=== PATIENT | female | born 1985 | race Caucasian/White ===

== ENCOUNTER 2018-07-31 08:16 | Emergency (ER) | END 2018-07-31 08:56 | disposition home or self-care (01) ==

== ENCOUNTER 2019-02-15 22:10 | Observation (INO) | payer OTHER ==
[~2019-02-15] VITALS: Ht 156.2 cm; Wt 73.9 kg
[~2019-02-15 22:10] MED LIST: AMOX1TAB10 PO
[2019-02-15 22:18] VITALS: BP 114/67; PULSE 82; RESP 20; Ht 156.2 cm; Wt 73.9 kg
[2019-02-15] MEDS ORDERED: PREN-93 PO (22:19)
[2019-02-16] MEDS ORDERED: TERBUTALINE 1 MG/ML INJ SC ONE (01:00)
[2019-02-16] MEDS ORDERED: LACTATED RINGER'S 1,000 ML IV ONE (01:00)
[2019-02-16] MEDS: LACTATED RINGER'S 1,000 ML IV SCH ×2 (02:50→05:48)
[2019-02-16] MEDS ORDERED: ACETAMINOPHEN 325 MG TAB PO PRN (04:00)
[2019-02-16] MEDS ORDERED: ACCU-CHEK XX SCH (06:00)
[2019-02-16] MEDS ORDERED: PRENATAL VITAMIN PO SCH (09:00)
--- NOTE | 2019-02-16 10:28 | PD.PPDC ---
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
--- NOTE | 2019-02-16 10:36 | DS ---
Date/Time of Note Date/Time of Note DATE: 02/16/19 TIME: 10:28 Obstetrical Discharge Record Final Diagnosis Final Diagnosis: not delivered Other Final Diagnosis IUP 36w2d GDM Complications Labor Augmentation: No Induction: No Rupture of Membranes: No Condition on Discharge Physical Assessment Last Vitals: vss afebrile EFM uc 8min mild feels far better VE 1-2 cm / long /-3 no change from last night 2200 Voiding: Yes Breast: Soft, non-tender Fundus: Other ( non tender) Calf Tenderness: No Patient Condition: Stable DANIELLE KAUFFMAN MD February 16, 2019 10:36
--- NOTE | 2019-02-16 11:47 | HP ---
Date/Time of Note Date/Time of Note DATE: 02/16/19 TIME: 11:43 OB - History Hx of Present Free Text/Dictation Late entry note 33-year-old 3 para 2 at 36 weeks and 2 days of gestation with estimated date of delivery March 14, 2019 Patient presents with chief complaint of uterine contractions She reports positive movement, denies vaginal bleeding or leaking fluid Patient's gestational diabetic diet controlled Estimated Due Date: Mar 14, 2019 : 3 Para: 2 Care: Good Care Obstetrical Complications: Gestational Diabetes (GDM A1) Past Family/Social History * Past Medical, Surgical, Family and Obstetric Histories reviewed from chart. OB Admission Exam Vital Signs Vital Signs Vital Signs Date Temp Pulse Resp B/P (MAP) Pulse Ox O2 O2 Flow FiO2 Time Delivery Rate 02/15/19 98.7 82 20 114/67 Room Air 22:18 (83) Physical Exam HEENT: WNL Heart: Rhythm Normal Lungs: Clear, Equal Abdomen: WNL Extremities: Normal Reflexes: Normal Cervical Dilatation: 2cm Effacement: 50% Station: -2 Membranes: Intact Heart Rate: 140's Accelerations: Accelerations Present Decelerations: No Decelerations Varibility: Moderate Contractions on Admission: < 5 Minutes Apart Intensity: Moderate Last 72 hourBlood Glucose Bedside Glucose - 72 Hours Test 02/15/19 22:45 02/16/19 08:09 Bedside Glucose 91 mg/dL (70-220) 75 mg/dL (70-220) Last 72 hours Lab Results CBC & BMP 02/16/19 04:49 PROCEDURE: US OB biophysical profile. CLINICAL INDICATION: labor TECHNIQUE: Multiple sonographic images of the pelvis were obtained. The images were reviewed on a PACS workstation. COMPARISON: None FINDINGS: There is a live intrauterine gestation. There is a normal amount of amniotic fluid with an GERMAIN = 12.3 cm. Cardiac activity is present with 158 beats per minute. There is a vertex presentation. The placenta is posterior. Biophysical profile: movement 2/2 tone 2/2. breathing 2/2 GERMAIN 2/2 Total 05/15 IMPRESSION: Normal biophysical profile. RPTAT:HCLE crystal Kole, Physician Date Time Electronically viewed and signed by Physician Bob on 02/16/2019 01:14 cE/ CC: DOREEN CANDELARIA MD [phone] PROCEDURE: US OB. CLINICAL INDICATION: labor TECHNIQUE: Multiple sonographic images of the pelvis were obtained. The images were reviewed on a PACS workstation. COMPARISON: No prior studies are available for comparison. FINDINGS: There is a single live intrauterine gestation. Cardiac activity is present with 159 beats per minute. There is a vertex presentation. Measurements were made in order to determine age. The results are as follows: BPD = 9.1 cm HC = 31.3 cm AC = 32.2 cm FL = 7.0 cm Estimated gestational age of approximately 36 weeks 1 day. The estimated date of delivery is 03/14/2019. The EFW = 2844 g, which is at the 50th percentile. The placenta is posterior. There is no evidence for an abruption or placenta previa. There is a normal amount of amniotic fluid with an GERMAIN = 12.3 cm. IMPRESSION: Single live intrauterine gestation of approximately 36 weeks 1 day. The estimated date of delivery is 03/14/2019. Estimated weight is at the 50th percentile. . No evidence of placental abruption or previa. RPTAT:HCLE crystal Sharif Physician Date Time Electronically viewed and signed by Physician Bob on 02/16/2019 01:14 cE/ CC: DOREEN CANDELARIA MD [phone] OB Assessment/Plan Reason for admission: labor Plan: Expectant Management Other plan: Patient received IV fluids and terbutaline and still slick Admit to labor and delivery for continuous observation Copies To: CC: HALEIGH GAMEZ MD ; DOREEN CANDELARIA MD February 16, 2019 11:47
== END 2019-02-16 10:31 | disposition home or self-care (01) ==
LOC: OBT 22:10 → L-D 22:10 → OBT 02-16 03:27 → INTOOBSV 02-16 03:27 → L-D 02-16 03:27
PROVIDERS: ADMIT Obstetrics & Gynecology; ATTEND Obstetrics & Gynecology
DX: O47.03 False labor before 37 completed weeks of gestation, third trimester (principal); O24.419 Gestational diabetes mellitus in pregnancy, unspecified control; Z3A.36 36 weeks gestation of pregnancy
CPT/HCPCS: 36415; 76815; 76818; 81001; 82962; 85025; 85610; 85730; 86592; 86762; 86850; 86900; 86901; 87340; 96360; 96361; 96372; J3105; J7120; Z7500; 81003; 99217; G0378; G0463

== ENCOUNTER 2019-02-26 04:22 | Inpatient (IN) | payer OTHER ==
[~2019-02-26] VITALS: Ht 154.9 cm; Wt 73.9 kg
[~2019-02-26 04:22] MED LIST changes: -AMOX1TAB10 PO; +PREN-93 PO
[2019-02-26 04:36] VITALS: BP 108/61; PULSE 77; RESP 18
[2019-02-26] MEDS ORDERED: LACTATED RINGER'S 1,000 ML IV PRN (04:40)
[2019-02-26] MEDS ORDERED: METHYLERGONOVINE 0.2 MG INJ IM PRN ×2 (05:00→13:00)
[2019-02-26] MEDS ORDERED: OXYTOCIN 30 UNITS/LR 500 ML IV PRN ×2 (05:00→13:00)
[2019-02-26] MEDS ORDERED: IBUPROFEN 600 MG TAB PO PRN (05:00)
[2019-02-26] MEDS ORDERED: OXYTOCIN 30 UNITS/LR 500 ML IV SCH ×3 (05:00→12:47)
[2019-02-26] MEDS ORDERED: CARBOPROST 250 MCG INJ IM PRN ×2 (05:00→13:00)
[2019-02-26] MEDS ORDERED: MISOPROSTOL 200 MCG TAB PR PRN ×2 (05:00→13:00)
[2019-02-26] MEDS ORDERED: LIDOCAINE 1% (MPF) 30 ML INJ INJ PRN (05:00)
[2019-02-26] MEDS ORDERED: MINERAL OIL LIGHT 10 ML VIAL TOP ONE (05:00)
[2019-02-26] MEDS ORDERED: BUTORPHANOL 2 MG INJ IV PRN ×2 (05:00)
[2019-02-26] MEDS: LACTATED RINGER'S 1,000 ML IV SCH ×3 (05:51→09:13)
--- NOTE | 2019-02-26 07:15 | PREAC ---
Date/Time of Note Date/Time of Note DATE: 02/26/19 TIME: 07:14 Anesthesia Eval and Record Evaluation Time Pre-Procedure Interview DATE: 02/26/19 TIME: 07:14 Age 33 Sex female NPO: Other Preoperative diagnosis labor pain Planned procedure epidural Past Medical History Past Medical History: Includes Endo: Diabetes (Gestational ) Surgery & Anesthesia Issues No known issue Meds Anticoagulation: No Beta Singh within 24 hr: No Reason Beta Singh not given: Pt. not on B-Singh Reported Medications Vit No.124/Iron/FA ( Vitamin Tablet) 1 Each Tablet, 1 EACH PO, TAB 02/15/19 Current Medications Lactated Ringer's 1,000 ml @ 125 mls/hr Q8H IV Last administered on 02/26/19at 05:51; Admin Dose 125 MLS/HR; Start 02/26/19 at 04:40 Butorphanol Tartrate (Stadol) 1 mg Q2H PRN IV .PAIN SCALE 1-5; Start 02/26/19 at 05:00 Butorphanol Tartrate (Stadol) 2 mg Q2H PRN IV .PAIN SCALE 6-10; Start 02/26/19 at 05:00 Lidocaine (Xylocaine 1% (Mpf)) 30 ml ONCE PRN INJ .EPISIOTOMY; Start 02/26/19 at 05:00 Oxytocin/Lactated Ringer's 500 ml @ 500 mls/hr ONCE POST IV ; Start 02/26/19 at 05:00 Oxytocin/Lactated Ringer's 500 ml @ 125 mls/hr POST IV ; Start 02/26/19 at 05:00 Ibuprofen (Motrin) 600 mg ONCE PRN PO .PAIN 1-5; Start 02/26/19 at 05:00 Lactated Ringer's 1,000 ml @ 2,000 mls/hr Q30M PRN IV .ANESTHESIA Last administered on 02/26/19at 07:03; Admin Dose 2,000 MLS/HR; Start 02/26/19 at 04:40 Oxytocin/Lactated Ringer's 500 ml @ 0 mls/hr ONCE PRN IV .VAGINAL BLEEDING; Start 02/26/19 at 05:00 Methylergonovine Maleate (Methergine) 0.2 mg ONCE PRN IM .VAGINAL BLEEDING; Start 02/26/19 at 05:00 Carboprost Tromethamine (Hemabate) 250 mcg ONCE PRN IM .VAGINAL BLEEDING; Start 02/26/19 at 05:00 Misoprostol (Cytotec) 1,000 mcg ONCE PRN IL .VAGINAL BLEEDING; Start 02/26/19 at 05:00 Meds reviewed: Yes Allergies Coded Allergies: No Known Drug Allergy (Verified Allergy, Mild, 02/26/19) Allergies Reviewed: Yes Labs/Studies Labs Reviewed: Reviewed by anesthesiologist Result Diagram: 02/26/1952902/26/19529 Laboratory Tests 02/26/19 05:30 Blood Bank Test 02/26/19 05:30 Blood Type A POSITIVE Rh Immune Globulin Candidate NO test: N/A Pre-procedure Exam Last vitals Vital Signs Date Temp Pulse Resp B/P (MAP) Pulse Ox O2 O2 Flow FiO2 Time Delivery Rate 02/26/19 98.4 77 18 108/61 Room Air 04:36 (77) Airway: Adequate mouth opening, Adequate thyromental dist Mallampati: Mallampati IV Teeth: Normal Lung: Normal Heart: Normal ASA Physical Status ASA physical status: 2 Emergency: None Pre-operative Attestations Prior to commencing anesthesia and surgery, the patient was re-evaluated, there was verification of: *The patient's identity *The results of appropriate recent lab work and preoperative vital signs *The above evaluation not changing prior to induction *Anesthetic plan, risk benefits, alternative and complications discussed with patient/family; questions answered; patient/family understands, accepts and wishes to proceed. MARICHUY DORSEY DO February 26, 2019 07:15
[2019-02-26] MEDS ORDERED: FENTAnyl 2MCG/ML-ROPIV 0.2% 100 ML ONE (07:18)
[2019-02-26] MEDS ORDERED: NALOXONE (0.4 MG/ML) INJ IV PRN (07:30)
[2019-02-26] MEDS ORDERED: FENTAnyl 2MCG/ML-ROPIV 0.2% 100 ML BAG EPI SCH (07:30)
--- NOTE | 2019-02-26 10:23 | PAC ---
Date/Time of Note Date/Time of Note DATE: 02/26/19 TIME: 10:22 Post-Anesthesia Notes Post-Anesthesia Note Last documented vital signs Vital Signs Date Temp Pulse Resp B/P (MAP) Pulse Ox O2 O2 Flow FiO2 Time Delivery Rate 98 80 18 101/62 100 Room Air 5 Activity: WNL Respiratory function: WNL Cardiovascular function: WNL Mental status: Baseline Pain reasonably controlled: Yes Hydration appropriate: Yes Nausea/Vomiting absent: Yes MARICHUY DORSEY DO February 26, 2019 10:23
--- NOTE | 2019-02-26 12:47 | LDN ---
Date/Time of Note Date/Time of Note DATE: 02/26/19 TIME: 12:45 Delivery Summary Weeks of Gestation 37 Placenta Delivered: Spontaneously Meconium: none Perineal laceration: 1 Laceration repair: 1st degree perineal laceration 3-0 chromic Anesthesia type: Epidural Estimated blood loss: 250 Sponge & Needle done & correct: Yes All needle counts correct: Yes Any foreign bodies felt in the: No Delivery Information Sex Infant Sex: male Apgars 1 Minute: 9 5 Minute: 9 Suctioning Nose & mouth suctioned at charisse: No Delee suction performed: No Umbilical Cord Umbilical cord with: 3 Vessels Cord presentations: no nuchal cord Cord Blood was obtained: Yes HALEIGH GAMEZ MD February 26, 2019 12:47
[2019-02-26] MEDS ORDERED: NACL 0.9% 3 ML SYG IV SCH (13:00)
[2019-02-26] MEDS ORDERED: BENZOCAINE 20% 56 ML SPRAY TOP PRN (13:00)
[2019-02-26] MEDS ORDERED: LANOLIN HPA 1 PKT TOP PRN (13:00)
[2019-02-26] MEDS ORDERED: OXYCODONE/ASPIRIN (4.88/325) TAB PO PRN ×2 (13:00)
[2019-02-26] MEDS ORDERED: DIPHENHYDRAMINE 25 MG CAP PO PRN (13:00)
[2019-02-26] MEDS ORDERED: SENNA/DOCUSATE NA (8.6MG/50MG) TAB PO PRN (13:00)
[2019-02-26] MEDS ORDERED: ONDANSETRON 4 MG INJ IV PRN (13:00)
[2019-02-26] MEDS ORDERED: WITCH HAZEL/GLYCERIN PAD PR PRN (13:00)
--- NOTE | 2019-02-26 13:16 | HP ---
DATE OF ADMISSION: 02/26/2019 HISTORY OF PRESENT ILLNESS: Ms. Julianne Guzmán is a 33-year-old 3, para 2, EDC 03/14/2019, i ntrauterine at term, admitted in labor. She reports starting having contractions early thi s morning. She denies any vaginal bleeding or discharge. Her care took place with Dr. Napoleon carter. PAST MEDICAL HISTORY: None. MEDICATIONS: vitamins. PAST SURGICAL HISTORY: None. OBSTETRIC HISTORY: x2 vaginal deliveries. GYNECOLOGIC HISTORY: 12, regular 3 to 4 days. Denies any sexually transmitted infections. Sexually active with 1 partner. SOCIAL HISTORY: Denies any smoking, drugs or alcohol. FAMILY HISTORY: None. REVIEW OF SYSTEMS: All within normal except history of present illness. PHYSICAL EXAMINATION: HEENT: Within normal. LUNGS: CTA. CARDIOVASCULAR: S1, S2, regular rate and rhythm. ABDOMEN: Gravid, nontender. Negative CVA bilateral. EXTREMITIES: No edema. No calf tenderness. PELVIC: Vaginal exam on admission: 5 cm dilated, 80% effaced, -2 station, intact. ASSESSMENT: heart tracing category 1 toco, regular contractions. ASSESSMENT: Intrauterine at term, in labor. PLAN: Anticipated vaginal delivery. Dictated By: HALEIGH ISIDRO/BHAVESH Conf#: [id number] DID#: [id number]
[2019-02-26] MEDS: ACCU-CHEK XX SCH ×2 (13:30→21:00)
[2019-02-26 15:00] VITALS: BP 116/65; PULSE 65; RESP 16
[2019-02-26 16:00] VITALS: BP 115/69; PULSE 65; RESP 16
[2019-02-26 17:00] VITALS: BP 116/61; PULSE 65; RESP 16
[2019-02-26] MEDS: IBUPROFEN 800 MG TAB PO SCH ×2 (17:46→23:56)
--- NOTE | 2019-02-26 19:10 | PREOPHP ---
DATE OF ADMISSION: 02/26/2019 HISTORY OF PRESENT ILLNESS: Ms. Julianne Guzmán is a 33-year-old 3, para 2, EDC of 03/27/2019 intrauterine at 35 plus weeks' gestational age, presented to triage complaining of contrac tions, pain scale of 8/10. She reports of vaginal spotting/bleeding. Her care took place a t the [facility]. PAST MEDICAL HISTORY: GDM A1. MEDICATIONS: vitamins. PAST SURGICAL HISTORY: None. OBSTETRIC HISTORY: x2 vaginal deliveries. GYNECOLOGIC HISTORY: 12, regular 3 to 4 days. Denies any sexually transmitted infections. Sexually active with 1 partner. SOCIAL HISTORY: Denies any smoking, drugs or alcohol. FAMILY HISTORY: None. REVIEW OF SYSTEMS: All within normal except history of present illness. PHYSICAL EXAMINATION: HEENT: Within normal. LUNGS: CTA bilateral. CARDIOVASCULAR: S1, S2. Regular rate, rhythm. ABDOMEN: Gravid, nontender. Negative CVA bilateral. EXTREMITIES: Negative calf tenderness. PELVIC: Vaginal exam: 4 to 5 cm dilated, 90% effaced, -1 station with bulging membranes. No active bleeding. heart tracing category 1. Fajardo: Regular contractions. ASSESSMENT: 1. Intrauterine at 35 plus weeks gestational age. 2. labor. 3. Previous section x2. 4. Desires elective repeat delivery. 5. Declined vaginal after . PLAN: Consent for repeat delivery. Risks, benefits and alternatives were explained. All q uestions were answered. Dictated By: HALEIGH ISIDRO/BHAVESH Conf#: [id number] DID#: [id number]
[2019-02-26 21:00] VITALS: BP 115/57; PULSE 63; RESP 18
[2019-02-26] MEDS: SENNA/DOCUSATE NA (8.6MG/50MG) TAB PO SCH (21:13)
[2019-02-26 23:53] VITALS: BP 125/56; PULSE 71; RESP 19
[2019-02-27 04:30] VITALS: BP 92/54; PULSE 68; RESP 18
[2019-02-27] MEDS: IBUPROFEN 800 MG TAB PO SCH ×3 (06:07→21:08)
--- NOTE | 2019-02-27 07:15 | PD.PPDC ---
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
--- NOTE | 2019-02-27 07:17 | DS ---
Date/Time of Note Date/Time of Note DATE: 02/27/19 TIME: 07:16 Obstetrical Discharge Record Final Diagnosis Final Diagnosis: Term delivered Vaginal Delivery Obstetrical Delivery: Spontaneous, Laceration, Repaired Condition on Discharge Physical Assessment Last Vitals: stable afebrile Voiding: Yes Bowel Movement: Yes Breast: Soft, non-tender, Filling Fundus: Firm Abdomen and Incision: soft nt Calf Tenderness: No Patient Condition: Fair HALEIGH GAMEZ MD February 27, 2019 07:17
[2019-02-27 08:15] VITALS: BP 90/52; PULSE 52; RESP 18
[2019-02-27] MEDS: SENNA/DOCUSATE NA (8.6MG/50MG) TAB PO SCH ×2 (10:37→21:00)
[2019-02-27 17:09] VITALS: BP 102/66; PULSE 68; RESP 18
[2019-02-27 20:00] VITALS: BP_SYST 101; BP_SYST 103; BP_DIAS 57; BP_DIAS 72; PULSE 102; PULSE 74; RESP 16; RESP 17
[2019-02-28 04:20] VITALS: BP 101/54; PULSE 64; RESP 16
[2019-02-28] MEDS: IBUPROFEN 800 MG TAB PO SCH ×3 (06:02→12:02)
[2019-02-28 08:00] VITALS: BP 112/54; PULSE 69; RESP 18
[2019-02-28] MEDS: ACCU-CHEK XX SCH ×2 (08:07→10:05)
[2019-02-28] MEDS ORDERED: MEASLES,MUMPS,RUBELLA VACCINE INJ SC* ONE (09:00)
[2019-02-28] MEDS: SENNA/DOCUSATE NA (8.6MG/50MG) TAB PO SCH (09:00)
--- NOTE | 2019-03-01 18:38 | DELSUM ---
Delivery Summary A-C Datetime Report Generated by CPN: 03/01/2019 18:38 DELIVERY PERSONNEL C D Reactor Operator: Kameron, Quiana MATERNAL INFORMATION Delivery Anesthesia: Epidural Medications in Delivery: LR with 30 units of pitocin Delivery QBL (ml): 250 Placenta Cultured: No Maternal Complications: None LABOR SUMMARY EDC: 03/14/2019 00:00 No. Babies in Womb: 1 Attempted: No Labor Anesthesia: Epidural LABOR INFORMATION Reason for Induction: Not Applicable Onset of Labor: 02/26/2019 03:00 Complete Dilatation: 02/26/2019 12:12 Oxytocin: N/A Group B Beta Strep: Negative Antibiotics # of Doses: 0 Steroids Given: None Reason Steroids Not Administered: Not Applicable MEMBRANES Membranes Rupture Method: Artificial Rupture of Membranes: 02/26/2019 12:12 Length of Rupture (hr): 0.33 Amniotic Fluid Color: Clear Amniotic Fluid Amount: Moderate Amniotic Fluid Odor: None STAGES OF LABOR Stage 1 hr: 9 Stage 1 min: 12 Stage 2 hr: 0 Stage 2 min: 20 Stage 3 hr: 1 Stage 3 min: 1 Total Time in Labor hr: 10 Total Time in Labor min: 33 VAGINAL DELIVERY Episiotomy: None Laceration Extension: First Degree Laceration Type: Perineal Laceration Repair: Yes Initial Vag Sponge Count: 10 Final Vag Sponge Count: 10 Initial Vag Sharps Count: 1 Final Vag Sharps Count: 2 Sponge Count Correct: Yes Sharps Count Correct: Yes BABY A INFORMATION Delivery Date/Time: 02/26/2019 12:32 Method of Delivery: Vaginal Born in Route : No : N/A Forceps: N/A Vacuum Extraction: N/A Shoulder Dystocia : N/A SHOULDER DYSTOCIA BABY A Infant Delivery Date/Time: 02/26/2019 12:32 PRESENTATION/POSITION BABY A Presentation: Cephalic Cephalic Presentation: Vertex Vertex Position: Left Occipital Posterior Breech Presentation: N/A PLACENTA INFORMATION BABY A Placenta Delivery Time : 02/26/2019 13:33 Placenta Method of Delivery: Spontaneous Placenta Status: Delivered SCORES BABY A Heart Rate 1 min: >100 bpm Resp Effort 1 min: Good Cry Reflex Irritability 1 min: Cough/Sneeze/Pulls Away Muscle Tone 1 min: Active Motion Color 1 min: Body [place], Extremit Blue Resuscitation Effort 1 min: Tactile Stimulation SCORE 1 MIN: 9 Heart Rate 5 min: >100 bpm Resp Effort 5 min: Good Cry Reflex Irritability 5 min: Cough/Sneeze/Pulls Away Muscle Tone 5 min: Active Motion Color 5 min: Body [place], Extremit Blue Resuscitation Effort 5 min: Tactile Stimulation SCORE 5 MIN: 9 INFANT INFORMATION BABY A Gestational Age at Delivery: 37.5 Gestational Status: Early Term- 37- 38.6 Weeks Infant Outcome : Liveborn Infant Condition : Stable Sex: Male IDENTIFICATION/MEDS BABY A ID Band Number: [id number] ID Band Location: Right Leg; Left Arm Sensor Applied: Yes Sensor Number: [id number] Sensor Location : Cord Clamp Vitamin K Given : Not Given Erythromycin Given: Not Given WEIGHT/LENGTH BABY A Infant Birthweight (gm): 3255 Infant Weight (lb): 7 Infant Weight (oz): 3 Infant Length (in): 19.00 Length (cm): 48.26 CORD INFORMATION BABY A No. Cord Vessels: 3 Nuchal Cord : N/A Cord Blood Taken: Yes Suction: Mouth; Nose ASSESSMENT BABY A Infant Complications: None Physical Findings at Delivery: Within Normal Limits Infant Respirations: Appears Normal Field Gauger/ALS Called : No Infant Care By: Brisa Carreon RN Transferred To: Remains with Mother
== END 2019-02-28 18:37 | disposition home or self-care (01) | DRG 807 ==
LOC: OBT 04:22 → L-D 04:22 → OBT 04:57 → L-D 04:57 → PP1 14:49
PROVIDERS: ADMIT Obstetrics & Gynecology; ATTEND Obstetrics & Gynecology
PROC: 10E0XZZ Delivery of Products of Conception, External Approach (ICD-10-PCS; principal; 2019-02-26)
PROC: 0HQ9XZZ Repair Perineum Skin, External Approach (ICD-10-PCS; 2019-02-26)
DX: O70.0 First degree perineal laceration during delivery (principal); Z37.0 Single live birth; Z3A.37 37 weeks gestation of pregnancy
CPT/HCPCS: 62322; 80053; 82962; 85025; 85610; 85730; 86592; 86850; 86900; 86901; 87340; G0463; J2210; J2590; J3010; J7120

== ENCOUNTER 2019-04-04 17:54 | Emergency (ER) | payer OTHER ==
[~2019-04-04] VITALS: Ht 160 cm; Wt 68.2 kg
[2019-04-04 17:57] VITALS: BP 138/65; PULSE 87; RESP 16; Ht 160 cm; Wt 68.2 kg
[2019-04-04] MEDS ORDERED: IBUP-1542 PO (22:19)
[2019-04-04] MEDS ORDERED: CEPH-443 PO (22:19)
--- NOTE | 2019-04-04 22:22 | ERD ---
ER Documentation Chief Complaint Chief Complaint lower abd pain since last night denies n/v HPI 33-year-old female presents with lower abdominal pain left pelvic pain since last night. She denies nausea vomiting diarrhea, urinary complaints, discharge. She denies right-sided abdominal pain. ROS All systems reviewed and are negative except as per history of present illness. Medications Home Meds Active Scripts Ibuprofen* (Motrin*) 600 Mg Tab, 600 MG PO Q6, #15 TAB Prov:TERRY HULL MD 04/04/19 Cephalexin* (Keflex*) 500 Mg Capsule, 500 MG PO QID for 5 Days, CAP Prov:TERRY HULL MD 04/04/19 Reported Medications Vit No.124/Iron/FA ( Vitamin Tablet) 1 Each Tablet, 1 EACH PO, TAB 02/15/19 Allergies Allergies: Coded Allergies: No Known Drug Allergy (Verified Allergy, Mild, 02/26/19) PMhx/Soc Medical and Surgical Hx: pt denies Medical Hx, pt denies Surgical Hx History of Surgery: No Anesthesia Reaction: No Hx Neurological Disorder: No Hx Respiratory Disorders: No Hx Cardiac Disorders: No Hx Psychiatric Problems: No Hx Miscellaneous Medical Probl: No Hx Alcohol Use: No Hx Substance Use: No Hx Tobacco Use: No Smoking Status: Never smoker FmHx Family History: No diabetes, No coronary disease, No other Physical Exam Vitals Vital Signs Date Temp Pulse Resp B/P (MAP) Pulse Ox O2 O2 Flow FiO2 Time Delivery Rate 04/04/19 99.1 87 16 138/65 100 17:57 (89) Physical Exam Const: No acute distress Head: Atraumatic Eyes: Normal Conjunctiva ENT: Normal External Ears, Nose and Mouth. Neck: Full range of motion. No meningismus. Resp: Clear to auscultation bilaterally Cardio: Regular rate and rhythm, no murmurs Abd: Soft, mobile tenderness left lower abdomen. No tenderness McBurney's point no [place] sign. No rebound., non distended. Normal bowel sounds Skin: No petechiae or rashes Back: No midline or flank tenderness Ext: No cyanosis, or edema Neur: Awake and alert Psych: Normal Mood and Affect Results 24 hrs Laboratory Tests Test 04/04/19 20:36 04/04/19 20:41 Urine Color STRAW Urine Clarity CLEAR Urine pH 8.0 Urine Specific Wray 1.012 Urine Ketones NEGATIVE mg/dL Urine Nitrite NEGATIVE mg/dL Urine Bilirubin NEGATIVE mg/dL Urine Urobilinogen NEGATIVE mg/dL Urine Leukocyte Esterase 1+ Elizabeth/ul Urine Microscopic RBC 0 /HPF Urine Microscopic WBC 3 /HPF Urine Bacteria FEW /HPF Urine Hemoglobin NEGATIVE mg/dL Urine Glucose NEGATIVE mg/dL Urine Total Protein NEGATIVE mg/dl POC Beta HCG, Qualitative NEGATIVE Current Medications Medications Dose Sig/Stephen Start Time Status Last (Trade) Ordered Route PRN Stop Time Admin Dose Reason Admin Cephalexin 500 mg ONCE ONCE 04/04/19 (Keflex) PO 22:30 04/04/19 22:31 Procedures/MDM Pelvic ultrasound read as normal by the radiologist without findings of torsion, tubo-ovarian abscess, ectopic , additional acute abnormalities. Urine shows leukocyte esterase. hCG negative. Patient given Keflex and ibuprofen. Patient presents with left lower pelvic pain since last night without findings of torsion, tubo-ovarian abscess, additional concerning signs or symptoms and no signs of surgical abdomen. Urine was sent for gonorrhea chlamydia. We will treat with Keflex, ibuprofen, recommendations for primary care follow-up and return precautions. The patient was stable with no new complaints during the ER course. Clinically, there is no current evidence to suggest meningitis, sepsis, acute abdomen, pneumonia, stroke, acute coronary syndrome, pulmonary embolism, aortic dissection or any other emergent condition appearing to require further evaluation or hospitalization. Patient counseled regarding my diagnostic impression and care plan. Prior to discharge all questions answered. Pt agrees with treatment plan and understands strict return precautions. Pt is instructed to follow up with primary care provider within 24-48 hours. Precautionary instructions provided including instructions to return to the ER if not improving or for any worsening or changing symptoms or concerns. Disclaimer: Inadvertent spelling and grammatical errors are likely due to EHR/dictation software use and do not reflect on the overall quality of patient care. Also, please note that the electronic time recorded on this note does not necessarily reflect the actual time of the patient encounter. Departure Diagnosis: Primary Impression: Pelvic pain Condition: Stable Patient Instructions: Urinary Tract Infections in Women, Pelvic Pain, Unknown Cause Additional Instructions: ULTRASONIDO normal hoy. ORINA TIENE INFECCION Y VAMOS A TRATAR. Cheque otro vez con ness doctor primario en el proximo zimmerman or regresa para mas o nueva simptomas. VAMOS A LLAMAR PARA RESULTADOS DE EXAMINES DE INFECCIONES ( CULTURA) TRERY HULL MD Apr 04, 2019 22:22
[2019-04-04] MEDS ORDERED: CEPHALEXIN 500 MG CAP PO ONE (22:30)
== END 2019-04-04 22:28 | disposition home or self-care (01) ==
LOC: FTE 17:54
DX: R10.2 Pelvic and perineal pain (principal)
CPT/HCPCS: 76856; 81001; 81025; 87591; Z7502; Z7610